=== PATIENT | female | born 1985 | race Caucasian/White ===

== ENCOUNTER 2016-09-13 14:08 | Inpatient (IN) | payer OTHER ==
[~2016-09-13] VITALS: Ht 160 cm; Wt 104.3 kg
[2016-09-13 17:00] VITALS: BP 158/75
[2016-09-13 17:15] VITALS: BP 159/81
[2016-09-13 17:30] VITALS: BP 135/61
[2016-09-13 17:45] VITALS: BP 119/60
--- NOTE | 2016-09-13 17:47 | Progress Note ---
Subjective General Post op note dictated; 35 5/7 week gestation IUP that had did well post delivery. Nuchal cord x 1
--- NOTE | 2016-09-13 17:47 | Progress Note ---
Subjective General Post op note dictated; 35 5/7 week gestation IUP that had did well post delivery. Nuchal cord x 1
[2016-09-13 18:15] VITALS: BP 142/71
[2016-09-13 20:15] VITALS: BP 132/81
[2016-09-14 00:30] VITALS: BP 120/59
--- NOTE | 2016-09-14 02:47 | DELIVERY SUMMARY ---
DELIVERY DATE: 09/13/2016 ATTENDING PHYSICIAN/PROVIDER: Jason Dias MD PREPROCEDURE DIAGNOSES: 1. Intrauterine at 35 and 5/7 weeks' gestation 2. Prematurity 3. Spontaneous labor 4. Vaginal delivery POSTPROCEDURE DIAGNOSES: 1. Intrauterine at 35 and 5/7 weeks' gestation 2. Prematurity 3. Spontaneous labor 4. Vaginal delivery. 5. Nuchal cord times 1 6. Viable baby without significant compromise PROCEDURE PERFORMED: 1. Normal spontaneous vaginal delivery. DELIVERY SUMMARY: The patient is a 30-year-old, G3, P1 now 2, who presented to labor and delivery with spontaneous labor at 7 cm dilatation and 80% effacement. She progressed. At 9 cm dilated, she had a bulging bag, which was ruptured. It showed clear fluid. She then within an hour, delivered a vaginal delivery and occiput anterior position. Nuchal cord x1 reduced initially. The baby was bulb suctioned on perineum and then delivered up to maternal abdomen. Cord was clamped and cut, and then the baby was taken over to the warmer where it had pinked up very well, had good heart tones and good respirations. With that, the baby had no further issues. The placenta was delivered spontaneously intact with a little Pitocin and uterine massage. There were no lacerations and both mom and baby were doing well after delivery.
[2016-09-14] MEDS ORDERED: PRENATAL1 TAB PO (05:05)
[2016-09-14] MEDS ORDERED: CITALOPRAM HYDR20 MG PO (05:08)
--- NOTE | 2016-09-14 07:01 | Progress Note ---
Subjective General States she is well this am. No concerns. Physical Exam Vital Signs / I&Os Vital Signs Date Time Temp Pulse Resp B/P Pulse O2 O2 Flow FiO2 Ox Delivery Rate 09/14 0120 Room Air 09/14 0030 98.2 91 20 120/59 09/13 2030 Room Air 09/13 2014 98.4 95 20 132/81 09/13 1815 81 18 142/71 09/13 1745 98.1 86 18 119/60 09/13 1730 86 18 135/61 09/13 1715 95 18 159/81 04 1700 100 18 158/75 I&O 09/14 0000 09/13 1600 09/13 0800 Intake Total 1800 Output Total Balance 1800 General Appearance Alert HEENT Normal exam Cardiovascular Regular rate and rhythm, No murmurs, gallops, rubs Abdomen Soft, uterus firm Extremities Sue's sign negative LAB Results Laboratory Tests 09/13 1430 Hematology WBC (4.5 - 11.5 K/uL) 21.5 RBC (4.00 - 5.20 M/uL) 4.25 Hgb (12.0 - 16.0 gm/dL) 12.6 Hct (36.0 - 46.0 %) 37.2 MCV (80 - 100 fL) 88 MCH (26 - 34 pg) 30 RDW (11.6 - 14.8 %) 14.0 Neut % (Auto) (50 - 75 %) 87.7 Lymph % (Auto) (25 - 40 %) 8.3 [place] % (Auto) (3 - 14 %) 3.3 Eos % (Auto) (0 - 4 %) 0.5 Baso % (Auto) (0 - 2 %) 0.2 Plt Count, EDTA (150 - 400 K/uL) 220 PUBS MCHC (31 - 37 g/dL) 34 Assessment and Plan Problem List 1. care and examination Plan Routine PP care and d/c today
--- NOTE | 2016-09-14 07:03 | Provider's Discharge Care Plan ---
Problem, Goal, Plan Problem List 1. care and examination Instructions: OK use of CHACHA pack and f/u in [address] El. Call if any concerns
--- NOTE | 2016-09-14 07:49 | Progress Note ---
Subjective General Feeding breast and bottle. Min cry Constitutional Denies: Fever, Sweats, Weakness. Eyes Denies: Conjunctival Inflammation, Eyelid Inflammation, Redness. ENT Denies: Nasal Discharge, Mouth Swelling, Throat Swelling. Respiratory Denies: Cough, SOB w/exertion, Wheezing. Cardiovascular Denies: Palpitations, Edema. Genitourinary Incontinence. Denies: Frequency, Retention. Musculoskeletal Denies: Other. Skin Denies: Rash, Lesions, Jaundice, Bruising. Neurological Denies: Weakness, Seizures. Physical Exam Vital Signs / I&Os Vital Signs Date Time Temp Pulse Resp B/P Pulse O2 O2 Flow FiO2 Ox Delivery Rate 09/14 0120 Room Air 09/14 0030 98.2 91 20 120/59 09/13 2030 Room Air 09/13 2014 98.4 95 20 132/81 09/13 1815 81 18 142/71 09/13 1745 98.1 86 18 119/60 09/13 1730 86 18 135/61 09/13 1715 95 18 159/81 09/13 1700 100 18 158/75 I&O 09/13 0800 09/13 1600 09/14 0000 Intake Total 1800 Output Total Balance 1800 General Appearance Alert, No acute distress HEENT PERRLA, EOMI, + red reflex Lungs Clear to auscultation Breasts Symmetric, breast buds Neck Supple, No thyromegaly, No lymphadenopathy Cardiovascular Regular rate and rhythm, No murmurs, gallops, rubs Abdomen Normal exam, Soft, No masses Pelvic Normal external genitalia Extremities Normal exam, No cyanosis, No edema, Normal pulses Skin No Rashes, No Significant Lesions Neurological Normal exam, No lateralizing signs Assessment and Plan Problem List 1. Normal (single liveborn) Plan Breast feeding
[2016-09-14 08:13] VITALS: BP 121/59
[2016-09-14 18:00] VITALS: BP 1360/68
== END 2016-09-14 18:50 | disposition home or self-care (01) | DRG 560 ==
LOC: OB SRH 14:08
PROVIDERS: ADMIT Family Medicine
PROC: 10E0XZZ Delivery of Products of Conception, External Approach (ICD-10-PCS; principal; 2016-09-13)
PROC: 3E0234Z Introduction of Serum, Toxoid and Vaccine into Muscle, Percutaneous Approach (ICD-10-PCS; 2016-09-14)
DX: O60.14X0 Preterm labor third trimester with preterm delivery third trimester, not applicable or unspecified (principal); Z37.0 Single live birth; Z3A.35 35 weeks gestation of pregnancy; O69.81X0 Labor and delivery complicated by cord around neck, without compression, not applicable or unspecified; O99.334 Smoking (tobacco) complicating childbirth; F17.210 Nicotine dependence, cigarettes, uncomplicated; O26.893 Other specified pregnancy related conditions, third trimester; Z67.41 Type O blood, Rh negative
CPT/HCPCS: 40011; 83501; 95059